=== PATIENT | female | born 1945 | race Caucasian/White ===

== ENCOUNTER → 2016-08-09 | Outpatient (CLI) | payer MEDICARE, BC ==
[2016-08-09 14:27] LABS: ABSOLUTE BASOPHILS # (AUTO) 0.1 10^3/uL (0.0-0.2); ABSOLUTE EOSINOPHILS # (AUTO) 0.2 10^3/uL (0.0-0.6); ABSOLUTE LYMPHOCYTES (AUTO) 2.7 10^3/uL (0.5-4.7); ABSOLUTE MONOCYTES (AUTO) 0.8 10^3/uL (0.1-1.4); ABSOLUTE NEUT (AUTO) 5.9 10^3/uL (1.7-8.2); BASOPHILS % (AUTO) 0.6 % (0-2); EOSINOPHILS % (AUTO) 2.1 % (0-6); HEMOGLOBIN 12.3 g/dL (12.0-15.5); HGB HCT DIFFERENCE 0.9; LYMPHOCYTES % (AUTO) 27.9 % (13-45); MEAN CORPUSCULAR HEMOGLOBIN 31.1 pg (27.0-33.4); MEAN CORPUSCULAR HGB CONC 34.2 g/dL (32.0-36.0); MEAN CORPUSCULAR VOLUME 91 fl (80-97); MONOCYTES % (AUTO) 8.7 % (3-13); RED BLOOD COUNT 3.96 10^6/uL (3.72-5.28); RED CELL DISTRIBUTION WIDTH 13.8 % (11.5-14.0); SEGMENTED NEUTROPHILS % (AUTO) 60.7 % (42-78); WHITE BLOOD COUNT 9.7 10^3/uL (4.0-10.5)
[2016-08-09 14:56] LABS: IRON 39.3 ug/dL (37-170)
[2016-08-09 15:28] LABS: FERRITIN 29.5 ng/mL (11.1-264.0)
== END ==
LOC: OD 13:35
PROVIDERS: ATTEND Specialist
DX: R10.9 Unspecified abdominal pain (principal); D50.9 Iron deficiency anemia, unspecified
CPT/HCPCS: 36415; 82728; 83540; 85025

== ENCOUNTER → 2016-12-27 | Outpatient (CLI) | payer MEDICARE, BC ==
[2016-12-27 15:35] LABS: ABSOLUTE BASOPHILS # (AUTO) 0.1 10^3/uL (0.0-0.2); ABSOLUTE EOSINOPHILS # (AUTO) 0.1 10^3/uL (0.0-0.6); ABSOLUTE LYMPHOCYTES (AUTO) 1.7 10^3/uL (0.5-4.7); ABSOLUTE MONOCYTES (AUTO) 0.6 10^3/uL (0.1-1.4); ABSOLUTE NEUT (AUTO) 5.2 10^3/uL (1.7-8.2); BASOPHILS % (AUTO) 0.9 % (0-2); EOSINOPHILS % (AUTO) 1.8 % (0-6); HEMATOCRIT 34.7 % (36.0-47.0); HEMOGLOBIN 11.7 g/dL (12.0-15.5); HGB HCT DIFFERENCE 0.4; LYMPHOCYTES % (AUTO) 22.4 % (13-45); MEAN CORPUSCULAR HEMOGLOBIN 31.6 pg (27.0-33.4); MEAN CORPUSCULAR HGB CONC 33.7 g/dL (32.0-36.0); MEAN CORPUSCULAR VOLUME 94 fl (80-97); MONOCYTES % (AUTO) 8.1 % (3-13); RED BLOOD COUNT 3.71 10^6/uL (3.72-5.28); RED CELL DISTRIBUTION WIDTH 13.2 % (11.5-14.0); SEGMENTED NEUTROPHILS % (AUTO) 66.8 % (42-78); WHITE BLOOD COUNT 7.7 10^3/uL (4.0-10.5)
[2016-12-27 15:53] LABS: ALANINE AMINOTRANSFERASE 22 U/L (9-52); ALBUMIN 3.8 g/dL (3.5-5.0); ALKALINE PHOSPHATASE 102 U/L (38-126); ANION GAP 12 (5-19); ASPARTATE AMINO TRANSFERASE 21 U/L (14-36); BILIRUBIN,DIRECT 0.3 mg/dL (0.0-0.4); BILIRUBIN,TOTAL 0.4 mg/dL (0.2-1.3); BLOOD UREA NITROGEN 24 mg/dL (7-20); CALCIUM 9.1 mg/dL (8.4-10.2); CARBON DIOXIDE 25 mmol/L (22-30); CHLORIDE 105 mmol/L (98-107); CREATININE RESULT 1.28 mg/dL (0.52-1.25); GLUCOSE 119 mg/dL (75-110); POTASSIUM 3.8 mmol/L (3.6-5.0); SODIUM 142.4 mmol/L (137-145); TOTAL PROTEIN 6.5 g/dL (6.3-8.2)
== END ==
LOC: OD 14:42
PROVIDERS: ATTEND Specialist
DX: R10.9 Unspecified abdominal pain (principal); D50.9 Iron deficiency anemia, unspecified
CPT/HCPCS: 36415; 80053; 85025

== ENCOUNTER 2017-04-06 07:30 | Day surgery (SDC) | payer MEDICARE, BC ==
--- NOTE | 2017-04-05 11:07 | HISTORY AND PHYSICAL E ---
History and Physical NAME: JUDY LOCKETT : 1945 AGE: 71Y ADMITTED: 04/06/2017 ROOM: HISTORY OF PRESENT ILLNESS: Patient was seen in 2012. She did have abdominal pain. Upper endoscopy showed no evidence of stricture. No biopsy was done. Patient admitted regarding colon exam. Patient's primary is Rufina Montoya. PAST MEDICAL HISTORY: The patient does have anemia. REVIEW OF SYSTEMS: ENDOCRINE: Hypothyroid. GASTROINTESTINAL: Diarrhea, abdominal pain. ONCOLOGIC/HEMATOLOGIC: Negative. NEUROPSYCHIATRIC: Patient did have back surgery. FAMILY HISTORY: Her mom is alive, known to have gallbladder disease. Her dad had heart disease. SOCIAL HISTORY: She does not smoke. She does not drink. PHYSICAL EXAMINATION: GENERAL: Pleasant, alert, oriented. VITAL SIGNS: Blood pressure 120/80, pulse 80, respirations 20, temp is 98. HEAD, EYES, EARS, NOSE, THROAT: Normal. NECK: Supple. LUNGS: Clear. ABDOMEN: Soft. NEUROLOGIC: Exam negative. MEDICATIONS: 1. Hydrocodone. 2. Ranexa. 3. Fish oil. 4. Potassium. 5. Thyroid. 6. Plavix. 7. Omeprazole. 8. Losartan. 9. Gabapentin. 10. Trazodone. CONCLUSION: 1. Diverticulosis. 2. Change in bowel habits. PLAN: Colonoscopy scheduled for 04/06/17. DICTATING PHYSICIAN: KAMILA DUGAN M.D. [id number] PHY#: [id number] ID: [id number] JOB#: [id number] ACCT: [id number] cc:KAMILA DUGAN M.D. >
[2017-04-06] MEDS ORDERED: ONDANSETRON HCL INJ/PF 4 MG/2 ML SDV ONE (07:35)
[2017-04-06] MEDS ORDERED: NALOXONE HCL INJ/PF 0.4 MG/1 ML SDV ONE (07:35)
[2017-04-06] MEDS ORDERED: GLYCOPYRROLATE INJ 0.4 MG/2 ML VIAL ONE (07:35)
[2017-04-06] MEDS ORDERED: GLUCAGON,HUMAN RECOMB 1 MG INJ ONE (07:36)
[2017-04-06] MEDS ORDERED: FENTANYL CITRATE INJ/PF 100 MCG/2 ML AMPUL ONE (07:36)
[2017-04-06] MEDS ORDERED: EPINEPHRINE INJ 1 MG/10 ML DISP.SYRIN ONE (07:36)
[2017-04-06] MEDS ORDERED: FLUMAZENIL INJ 0.5 MG/5 ML VIAL ONE (07:36)
[2017-04-06] MEDS: MIDAZOLAM 2 MG/2 ML INJ ONE ×3 (08:04→08:14)
[2017-04-06] MEDS: FENTANYL CITRATE INJ/PF 100 MCG/2 ML AMPUL ONE ×3 (08:06→08:15)
[2017-04-06 09:21] LABS: ABSOLUTE BASOPHILS # (AUTO) 0.1 10^3/uL (0.0-0.2); ABSOLUTE EOSINOPHILS # (AUTO) 0.1 10^3/uL (0.0-0.6); ABSOLUTE LYMPHOCYTES (AUTO) 1.3 10^3/uL (0.5-4.7); ABSOLUTE MONOCYTES (AUTO) 0.9 10^3/uL (0.1-1.4); ABSOLUTE NEUT (AUTO) 10.7 10^3/uL (1.7-8.2); BASOPHILS % (AUTO) 0.8 % (0-2); EOSINOPHILS % (AUTO) 0.9 % (0-6); HEMATOCRIT 37.6 % (36.0-47.0); HEMOGLOBIN 12.4 g/dL (12.0-15.5); HGB HCT DIFFERENCE -0.4; LYMPHOCYTES % (AUTO) 10.2 % (13-45); MEAN CORPUSCULAR HEMOGLOBIN 30.7 pg (27.0-33.4); MEAN CORPUSCULAR HGB CONC 32.9 g/dL (32.0-36.0); MEAN CORPUSCULAR VOLUME 93 fl (80-97); MONOCYTES % (AUTO) 6.6 % (3-13); RED BLOOD COUNT 4.03 10^6/uL (3.72-5.28); RED CELL DISTRIBUTION WIDTH 14.4 % (11.5-14.0); SEGMENTED NEUTROPHILS % (AUTO) 81.5 % (42-78); WHITE BLOOD COUNT 13.1 10^3/uL (4.0-10.5)
[2017-04-06 09:32] VITALS: BP 122/81
--- NOTE | 2017-04-06 10:55 | DISCHARGE SUMMARY E ---
Discharge Summary NAME: JUDY LOCKETT : 1945 AGE: 71Y ADMITTED: 04/06/2017 DISCHARGED: 04/06/2017 HOSPITAL COURSE: A 71-year-old female presented with diarrhea. Remote history of polyps. She does have history of MRSA. No open wounds. She does have sleep apnea. She uses CPAP. History of pneumonia in February of this year. She does have history of asthma. Today's colonoscopy was successful to the cecum. Patient is overweight. She does have redundancy in her colon with abdominal manipulation and assistance of straightening the loops through abdominal manipulation. We were successful to do complete screening. She is discharged on soft, low residue diet. Hold aspirin and Plavix 5 days. Baseline CBC. Followup office visit in the next few days. Consider colonoscopy after 10 years after clinical evaluation. DICTATING PHYSICIAN: KAMILA DUGAN M.D. [id number] PHY#: [id number] ID: [id number] JOB#: [id number] ACCT: [id number] cc:KAMILA DUGAN M.D. >
--- NOTE | 2017-04-06 10:56 | OPERATIVE REPORT E ---
Operative Report NAME: JUDY LOCKETT : 1945 AGE: 71Y DATE OF SURGERY: 04/06/2017 ROOM: PREOPERATIVE DIAGNOSIS: Diarrhea. POSTOPERATIVE DIAGNOSES: 1. External hemorrhoids, mild. 2. Sigmoid and descending colon diverticulosis. OPERATION: Colonoscopy. SURGEON: KAMILA DUGAN M.D. ANESTHESIA: Versed 4 and fentanyl 100. TISSUE REMOVED OR ALTERED: Right colon biopsy x3. DESCRIPTION OF PROCEDURE: Rectal exam: External hemorrhoids, mild. Rectum normal. Sigmoid diverticulosis. Descending colon diverticulosis. Transverse colon normal, redundant. Difficult intubation. We have good assistance with abdominal manipulation by the nurse. Ascending colon normal. Cecum thoroughly visualized was normal. Multiple biopsies obtained for microscopic colitis probability. Cecum and ascending no polyps. Transverse colon normal. Descending, sigmoid diverticulosis. External hemorrhoids. PLAN: Hold Plavix 5 days. Awaiting biopsy results. Baseline CBC. Consider followup colonoscopy in 10 years after clinical evaluation at that time. DICTATING PHYSICIAN: KAMILA DUGAN M.D. [id number] PHY#: [id number] ID: [id number] JOB#: [id number] ACCT: [id number] cc:KAMILA DUGAN M.D. >
== END 2017-04-06 09:35 | disposition home or self-care (01) ==
LOC: END 07:30
PROVIDERS: ATTEND Specialist
PROC: 0DBH8ZX Excision of Cecum, Via Natural or Artificial Opening Endoscopic, Diagnostic (ICD-10-PCS; principal; 2017-04-06 08:00)
DX: K57.30 Diverticulosis of large intestine without perforation or abscess without bleeding (principal); K63.89 Other specified diseases of intestine; K64.4 Residual hemorrhoidal skin tags; E03.9 Hypothyroidism, unspecified; D64.9 Anemia, unspecified; G47.30 Sleep apnea, unspecified; Z79.02 Long term (current) use of antithrombotics/antiplatelets; Z86.14 Personal history of Methicillin resistant Staphylococcus aureus infection; Z79.899 Other long term (current) drug therapy
CPT/HCPCS: 45380; 36415; 85025; 88305 ×2; J2250; J3010; J1610; J2405; J0171; J2310; J3490